=== PATIENT | female | born 1990 | race Asian ===

== ENCOUNTER → 2017-11-30 | Outpatient (REF) ==
[2017-12-02 14:39] LABS: QUANTIFERON GOLD TB Negative (Negative); TB Test (QFT) Antigen 0.05 IU/mL (.); TB Test (QFT) Antigen Minus Ni 0.02 IU/mL (.); TB Test (QFT) Mitogen 5.95 IU/mL (.); TB Test (QFT) Nil 0.03 IU/mL (.)
== END ==
LOC: M LAB 10:06
DX: Z02.89 Encounter for other administrative examinations (principal)

== ENCOUNTER → 2018-05-10 | Outpatient (REF) | payer BC ==
[2018-05-10 12:45] LABS: BASO % 0.7 % (0.0-1.0); EOS # 0.1 10^3/uL (0.0-0.50); EOS % 2.3 % (0.0-3.0); HEMATOCRIT 36.3 % (36.0-47.0); HEMOGLOBIN 12.2 g/dl (12.0-15.5); IMMATURE GRANULOCYTE % 0.2 % (0-3.0); LYMPH # 2.1 10^3/uL (1.5-4.5); LYMPH % 47.6 % (24.0-44.0); MEAN CORPUSCULAR HEMOGLOBIN 29.3 pg (27.0-33.0); MEAN CORPUSCULAR HGB CONC 33.6 g/dl (32.0-36.5); MEAN CORPUSCULAR VOLUME 87.3 fl (80.0-96.0); MONO # 0.3 10^3/uL (0.0-0.8); NEUTROPHILS # 1.9 10^3/uL (1.8-7.7); NEUTROPHILS % 43.2 % (36.0-66.0); PLATELET COUNT, AUTOMATED 301 10^3/uL (150-450); RED BLOOD COUNT 4.16 10^6/uL (4.00-5.40); RED CELL DISTRIBUTION WIDTH 12.2 % (11.5-14.5); RETICULOCYTE # 38.7 10^9/L (17-77); RETICULOCYTE % 0.9 % (0.5-1.5); WHITE BLOOD COUNT 4.3 10^3/uL (4.0-10.0)
[2018-05-10 12:57] LABS: ALBUMIN 3.8 GM/DL (3.2-5.2); ALBUMIN/GLOBULIN RATIO 1.15 (1.00-1.93); ALKALINE PHOSPHATASE 80 U/L (45-117); ALT/SGPT 41 U/L (12-78); ANION GAP 5 MEQ/L (8-16); AST/SGOT 26 U/L (7-37); BILIRUBIN,TOTAL 0.3 MG/DL (0.2-1.0); BLOOD UREA NITROGEN 10 MG/DL (7-18); CALCIUM LEVEL 8.8 MG/DL (8.5-10.1); CARBON DIOXIDE LEVEL 30 MEQ/L (21-32); CHLORIDE LEVEL 106 MEQ/L (98-107); CHOLESTEROL LEVEL 236 MG/DL (<200); CHOLESTEROL RISK RATIO 3.146 (<5); CREATININE FOR GFR 0.62 MG/DL (0.55-1.30); FERRITIN 12 NG/ML (8-252); FREE T4 0.82 NG/DL (0.76-1.46); GLOMERULAR FILTRATION RATE > 60.0 (>60); GLUCOSE, FASTING 79 MG/DL (70-100); HDL CHOLESTEROL 75 MG/DL (>40); LDL CHOLESTEROL 117 MG/DL (<100); NON-HDL-C 161 MG/DL; POTASSIUM SERUM 4.1 MEQ/L (3.5-5.1); SODIUM LEVEL 141 MEQ/L (136-145); TOTAL PROTEIN 7.1 GM/DL (6.4-8.2); TRIGLYCERIDES LEVEL 220 MG/DL (<150)
[2018-05-10 12:59] LABS: PTH INTACT 58.8 PG/ML (18.5-88.0)
[2018-05-10 14:03] LABS: ESTIMATED AVERAGE GLUCOSE 108 MG/DL (60-110); HEMOGLOBIN A1c 5.4 %
[2018-05-11 09:55] LABS: THYROGLOBULIN ANTIBODY 29.8 U/ML (<60.0); THYROID PEROXIDASE ANTIBODY < 28.0 U/ML (<60.0)
[2018-05-11 14:16] LABS: INSULIN LEVEL 15.5 uIU/mL (2.6-24.9)
== END ==
LOC: M SFHCPLAZ 09:31
DX: E03.9 Hypothyroidism, unspecified (principal); K86.89 Other specified diseases of pancreas
CPT/HCPCS: 83525

== ENCOUNTER → 2018-06-09 | Outpatient (REF) | payer BC ==
[2018-06-09 15:50] LABS: URINE PREG TEST NEGATIVE (NEGATIVE)
== END ==
LOC: M SFHCPLAZ 14:21
PROVIDERS: ATTEND Dermatology
DX: L70.0 Acne vulgaris (principal)

== ENCOUNTER → 2018-06-17 | Outpatient (CLI) | payer BC ==
[~2018-06-17] MED LIST: GASTROGRAFIN SOLUTION 30ML (Q9963) As Ordered ONE; ISOVUE-370 76% 100ML VIAL (Q9967) As Ordered ONE
--- NOTE | 2018-06-17 21:19 | REP ---
CT study of the chest with IV contrast: History: Lung nodule. History of malignant cystic pancreatic tumor. Right ovarian cyst. CT contrast dose: 100 ml of intravenous Isovue, three, [address] imaging was from November 15, 2017 at an outside facility. This was reported as showing a 5 mm partially solid nodule in the right middle lobe. CT findings: There has been no change in the appearance of the small partly solid nodular opacity in the right middle lobe in the interval since the November 15, 2017 prior study. It is unchanged in size and appears less solid. No progressive change is seen. No new pulmonary nodule is appreciated. No pleural or pericardial effusion is seen. No hilar or mediastinal mass or adenopathy is observed. There is a small quantity of residual thymic tissue again noted unchanged in the anterior mediastinum. No vascular abnormality is noted on this noncontrast study. No bony abnormality is seen. Impression: Non solid 5 mm right middle lobe nodular density unchanged when compared to the November 15, 2017 prior study. No new pulmonary parenchymal abnormalities. Consider repeat follow-up chest CT study in 1 year. Otherwise no acute disease. Electronically Signed by Vincent Zelaya MD 06/18/2018 08:23 A
--- NOTE | 2018-06-18 06:34 | REP ---
CT abdomen and pelvis without and with IV contrast: With oral contrast. History: History of cystic pancreatic malignancy, status post Whipple. Ovarian cyst. Comparison MRI study of the abdomen and pelvis from an outside institution dated November 15, 2017. CT contrast dose: 100 ml of intravenous Isovue 370. CT findings: Digital preliminary family practice doctor radiograph shows a few loops of dilated small bowel in the central abdomen. The liver is normal in size and homogeneous in texture. Spleen is unremarkable. No adrenal lesion is seen on either side. The kidneys enhance symmetrically and are morphologically intact. The patient is status post Whipple procedure. The pancreas is surgically absent. There is minimal pneumobilia in the common bile duct just above the choledochojejunostomy. No biliary ductal dilation is observed. The frank splenic venous confluence is slightly prominent but widely patent. The main portal vein measures 16 mm, which is mildly enlarged. No retroperitoneal or upper abdominal lymphadenopathy is seen. There are multiple air and fluid filled mildly dilated small bowel loops in the upper abdomen. No obstructive lesion is seen however. I suspect that the patient has had a gastroduodenal resection reanastomosis as there is no observable C-loop. No colonic abnormality is observed. In the pelvis, there is a right ovarian cystic lesion measuring 4.6 by 3.3 by 3.9 cm. This is nonspecific. Uterus is tipped to the left. Normal left ovary is seen. Urinary bladder is intact. No abdominal wall defect is seen. No bony destructive lesion is appreciated. Impression: Mildly dilated small bowel loops without obstructive lesion. Status post Whipple surgical findings. There is no evidence of adenopathy or metastatic disease. 4.6 cm cystic lesion right ovary. Electronically Signed by Vincent Zelaya MD 06/18/2018 08:24 A
== END ==
LOC: M RAD 16:08
PROVIDERS: ATTEND Family Medicine
DX: R91.1 Solitary pulmonary nodule (principal); D49.0 Neoplasm of unspecified behavior of digestive system; N83.201 Unspecified ovarian cyst, right side
CPT/HCPCS: 71260; 74178; Q9963; Q9967

== ENCOUNTER → 2018-07-11 | Outpatient (REF) | payer BC ==
[2018-07-11 19:15] LABS: URINE PREG TEST NEGATIVE (NEGATIVE)
[2018-07-11 19:43] LABS: HEMATOCRIT 37.1 % (36.0-47.0); HEMOGLOBIN 12.4 g/dl (12.0-15.5); MEAN CORPUSCULAR HEMOGLOBIN 29.7 pg (27.0-33.0); MEAN CORPUSCULAR HGB CONC 33.4 g/dl (32.0-36.5); MEAN CORPUSCULAR VOLUME 88.8 fl (80.0-96.0); PLATELET COUNT, AUTOMATED 313 10^3/uL (150-450); RED BLOOD COUNT 4.18 10^6/uL (4.00-5.40); WHITE BLOOD COUNT 5.2 10^3/uL (4.0-10.0)
[2018-07-11 19:48] LABS: ALBUMIN 4.1 GM/DL (3.2-5.2); ALT/SGPT 43 U/L (12-78); BILIRUBIN,TOTAL 0.4 MG/DL (0.2-1.0); BLOOD UREA NITROGEN 9 MG/DL (7-18); CALCIUM LEVEL 8.6 MG/DL (8.5-10.1); CARBON DIOXIDE LEVEL 28 MEQ/L (21-32); CHLORIDE LEVEL 104 MEQ/L (98-107); CHOLESTEROL LEVEL 195 MG/DL (<200); CHOLESTEROL RISK RATIO 2.349 (<5); CREATININE FOR GFR 0.67 MG/DL (0.55-1.30); GLOMERULAR FILTRATION RATE > 60.0 (>60); GLUCOSE, FASTING 86 MG/DL (70-100); HDL CHOLESTEROL 83 MG/DL (>40); LDL CHOLESTEROL 81 MG/DL (<100); NON-HDL-C 112 MG/DL; POTASSIUM SERUM 4.4 MEQ/L (3.5-5.1); SODIUM LEVEL 139 MEQ/L (136-145); TOTAL PROTEIN 7.1 GM/DL (6.4-8.2); TRIGLYCERIDES LEVEL 153 MG/DL (<150)
== END ==
LOC: M SFHCPLAZ 15:38
PROVIDERS: ATTEND Dermatology
DX: L70.0 Acne vulgaris (principal)

== ENCOUNTER → 2018-07-29 | Outpatient (REF) | payer BC ==
[2018-07-29 12:40] LABS: ALBUMIN 4.3 GM/DL (3.2-5.2); ALT/SGPT 38 U/L (12-78); BILIRUBIN,TOTAL 0.8 MG/DL (0.2-1.0); BLOOD UREA NITROGEN 7 MG/DL (7-18); CALCIUM LEVEL 8.7 MG/DL (8.5-10.1); CARBON DIOXIDE LEVEL 24 MEQ/L (21-32); CHLORIDE LEVEL 108 MEQ/L (98-107); CREATININE FOR GFR 0.86 MG/DL (0.55-1.30); GLOMERULAR FILTRATION RATE > 60.0 (>60); GLUCOSE, FASTING 71 MG/DL (70-100); SODIUM LEVEL 140 MEQ/L (136-145); TOTAL PROTEIN 7.5 GM/DL (6.4-8.2)
[2018-07-29 13:04] LABS: HEMOGLOBIN A1c 5.2 %
[2018-07-30 14:09] LABS: INSULIN LEVEL 7.1 uIU/mL (2.6-24.9)
[2018-08-01 14:11] LABS: D001-IgE D pteronyssinus <0.10 kU/L (Class 0); E001-IgE Cat Epith/Dander < 0.10 kU/L (Class 0); E005-IgE Dog Dander < 0.10 kU/L (Class 0); G002-IgE Bermuda Grass < 0.10 kU/L (Class 0); G008-IgE Kentucky Bluegrass < 0.10 kU/L (Class 0); M001-IgE Penicillium chrysogen < 0.10 kU/L (Class 0); M002 IgE Cladosporium herbaru < 0.10 kU/L (Class 0); M003 IgE Aspergillus fumigatu < 0.10 kU/L (Class 0); M006-IgE Alternaria alternata < 0.10 kU/L (Class 0); T001-IgE Maple/Box Elder < 0.10 kU/L (Class 0); T003-IgE Common Silver Birch < 0.10 kU/L (Class 0); T006-IgE Cedar, Mountain < 0.10 kU/L (Class 0); T007-IgE Oak, White < 0.10 kU/L (Class 0); T008-IgE Elm, American < 0.10 kU/L (Class 0); T015-IgE Ash, White < 0.10 kU/L (Class 0); T041-IgE Hickory, White < 0.10 kU/L (Class 0); T070-IgE White Mulberry < 0.10 kU/L (Class 0); W001-IgE Ragweed, Short < 0.10 kU/L (Class 0); W009-IgE Plantain, English < 0.10 kU/L (Class 0); W014-IgE Pigweed, Rough < 0.10 kU/L (Class 0); W018-IgE Sheep Sorrel < 0.10 kU/L (Class 0)
== END ==
LOC: M SFHCPLAZ 08:44
PROVIDERS: ATTEND Family Medicine
DX: K86.89 Other specified diseases of pancreas (principal); J30.89 Other allergic rhinitis

== ENCOUNTER → 2018-08-01 | Outpatient (REF) | payer BC ==
[2018-08-01 16:32] LABS: URINE PREG TEST NEGATIVE (NEGATIVE)
== END ==
LOC: M SFHCPLAZ 14:30
PROVIDERS: ATTEND Dermatology
DX: L70.0 Acne vulgaris (principal)

== ENCOUNTER → 2018-10-13 | Outpatient (REF) | payer BC ==
[2018-10-13 12:01] LABS: INR 0.98; PARTIAL THROMBOPLASTIN TIME 29.7 SECONDS (25.4-37.6); PROTHROMBIN TIME 13.1 SECONDS (12.1-14.4)
[2018-10-13 12:16] LABS: ALBUMIN 4.2 GM/DL (3.2-5.2); ALT/SGPT 334 U/L (12-78); BILIRUBIN,TOTAL 0.7 MG/DL (0.2-1.0); BLOOD UREA NITROGEN 11 MG/DL (7-18); CALCIUM LEVEL 8.8 MG/DL (8.5-10.1); CARBON DIOXIDE LEVEL 30 MEQ/L (21-32); CHLORIDE LEVEL 103 MEQ/L (98-107); CREATININE FOR GFR 0.72 MG/DL (0.55-1.30); FREE T4 1.04 NG/DL (0.76-1.46); GLOMERULAR FILTRATION RATE > 60.0 (>60); GLUCOSE, FASTING 82 MG/DL (70-100); POTASSIUM SERUM 4.2 MEQ/L (3.5-5.1); PTH INTACT 93.7 PG/ML (18.5-88.0); SODIUM LEVEL 139 MEQ/L (136-145); TOTAL 25(OH) VITAMIN D 10.5 NG/ML (30.0-100.0); TOTAL PROTEIN 7.4 GM/DL (6.4-8.2)
== END ==
LOC: M SFHCPLAZ 08:38
PROVIDERS: ATTEND Family Medicine
DX: E55.9 Vitamin D deficiency, unspecified (principal); E03.9 Hypothyroidism, unspecified; K86.89 Other specified diseases of pancreas

== ENCOUNTER → 2018-10-18 | Outpatient (CLI) | payer BC ==
[2018-10-18 17:28] LABS: ALBUMIN 3.6 GM/DL (3.2-5.2); ALT/SGPT 126 U/L (12-78); BILIRUBIN,DIRECT < 0.1 MG/DL (0.0-0.2); BILIRUBIN,TOTAL 0.3 MG/DL (0.2-1.0); TOTAL PROTEIN 7.1 GM/DL (6.4-8.2)
[2018-10-19 10:47] LABS: HEPATITIS B SURFACE ANTIGEN NEGATIVE (NEGATIVE)
[2018-10-19 11:17] LABS: HEPATITIS A ANTIBODY IGM NEGATIVE (NEGATIVE)
[2018-10-21 00:06] LABS: ANA (HEP2) Negative (.)
== END ==
LOC: M LAB 16:00
PROVIDERS: ATTEND Family Medicine
DX: K75.9 Inflammatory liver disease, unspecified (principal)

== ENCOUNTER → 2018-11-03 | Outpatient (CLI) | payer BC ==
--- NOTE | 2018-11-03 11:42 | REP ---
ULTRASOUND ABDOMEN: Real-time sonographic evaluation of abdomen performed. Patient has had a prior cholecystectomy and Whipple procedure. There is no intrahepatic or extrahepatic biliary dilatation, common bile duct measuring 5 mm. Liver demonstrates no mass. The pancreatic bed is grossly unremarkable. Spleen is normal in size with no intrinsic abnormality measuring 9.8 x 9.9 x 3.8 cm. Kidneys are normal in size and echotexture, right kidney measuring 10.0 x 4.8 x 4.0 cm and left kidney 10.1 x 4.2 x 4.2 cm. There is no hydronephrosis, renal mass or nephrolithiasis identified. Abdominal aorta could not be visualized due to overlying bowel gas. No ascites is seen. IMPRESSION: Essentially negative abdominal ultrasound status post Whipple procedure and cholecystectomy. Electronically Signed by Carlos Riojas MD 11/03/2018 04:32 P
== END ==
LOC: M RAD 07:24
PROVIDERS: ATTEND Family Medicine
DX: D49.0 Neoplasm of unspecified behavior of digestive system (principal); Z90.79 Acquired absence of other genital organ(s)

== ENCOUNTER → 2018-11-11 | Outpatient (REF) | payer BC ==
[2018-11-11 18:22] LABS: ALBUMIN 3.7 GM/DL (3.2-5.2); ALT/SGPT 41 U/L (12-78); BILIRUBIN,DIRECT 0.1 MG/DL (0.0-0.2); BILIRUBIN,TOTAL 0.5 MG/DL (0.2-1.0); CHOLESTEROL LEVEL 201 MG/DL (<200); CHOLESTEROL RISK RATIO 2.955 (<5); HDL CHOLESTEROL 68 MG/DL (>40); LDL CHOLESTEROL 89 MG/DL (<100); NON-HDL-C 133 MG/DL; TOTAL PROTEIN 7.3 GM/DL (6.4-8.2); TRIGLYCERIDES LEVEL 219 MG/DL (<150)
[2018-11-11 18:30] LABS: HCG, SERUM QUALITATIVE NEGATIVE (NEGATIVE)
[2018-11-11 18:41] LABS: HEMATOCRIT 36.8 % (36.0-47.0); HEMOGLOBIN 12.6 g/dl (12.0-15.5); MEAN CORPUSCULAR HEMOGLOBIN 30.4 pg (27.0-33.0); MEAN CORPUSCULAR HGB CONC 34.2 g/dl (32.0-36.5); MEAN CORPUSCULAR VOLUME 88.7 fl (80.0-96.0); PLATELET COUNT, AUTOMATED 306 10^3/uL (150-450); RED BLOOD COUNT 4.15 10^6/uL (4.00-5.40); WHITE BLOOD COUNT 7.1 10^3/uL (4.0-10.0)
== END ==
LOC: M SFHCPLAZ 15:36
PROVIDERS: ATTEND Family Medicine
DX: Z79.899 Other long term (current) drug therapy (principal)

== ENCOUNTER → 2018-11-17 | Outpatient (CLI) | payer BC ==
[2018-11-17 18:07] LABS: FREE T4 0.88 NG/DL (0.76-1.46); THYROID STIMULATING HORMONE 2.67 uIU/ML (0.358-3.740)
[2018-11-17 18:11] LABS: FOLLICLE STIMULATING HORMONE 2.5 mIU/mL; LUTEINIZING HORMONE 2.6 mIU/mL; PROGESTERONE 16.65 NG/ML; PROLACTIN 9.9 NG/ML
[2018-11-19 10:24] LABS: TESTOSTERONE FREE (DIRECT) 1.2 pg/mL (0.0-4.2)
== END ==
LOC: M SMT 15:30
PROVIDERS: ATTEND Specialist
DX: E28.2 Polycystic ovarian syndrome (principal); N93.8 Other specified abnormal uterine and vaginal bleeding

== ENCOUNTER → 2018-12-29 | Outpatient (CLI) | payer BC ==
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
--- NOTE | 2018-12-29 20:39 | REPVR ---
EXAM: MR Head Without Contrast EXAM DATE/TIME: 12/29/2018 6:28 PM CLINICAL HISTORY: 28 years old, female; Pain; Headache; Migraine; Aura effect not specified; Other: Unknown; Additional info: Intractable migraine TECHNIQUE: Imaging protocol: MR of the head without contrast. COMPARISON: No relevant prior studies available. FINDINGS: Brain: Normal. No acute infarct. No hemorrhage. No significant white matter disease. No edema. Ventricles: Normal. No ventriculomegaly. Bones/joints: Unremarkable. Soft tissues: Normal. Sinuses: Minimal inflammatory changes in the ethmoid sinuses. Mastoid air cells: Normal as visualized. No mastoid effusion. Orbits: Unremarkable. IMPRESSION: No acute findings. Electronically signed by: Elan Wilson On 12/29/2018 20:39:27 PM
== END ==
LOC: M RAD 16:40
PROVIDERS: ATTEND Psychiatry & Neurology Neurology
DX: G43.719 Chronic migraine without aura, intractable, without status migrainosus (principal)

== ENCOUNTER → 2019-01-13 | Outpatient (REF) | payer BC | LOC: M SFHCPLAZ 10:54 | PROVIDERS: ATTEND Dermatology | DX: D49.2 Neoplasm of unspecified behavior of bone, soft tissue, and skin (principal) ==

== ENCOUNTER → 2019-02-20 | Outpatient (CLI) | payer BC ==
[2019-02-20 11:53] LABS: HEMATOCRIT 35.3 % (36.0-47.0); HEMOGLOBIN 12.1 g/dl (12.0-15.5); MEAN CORPUSCULAR HEMOGLOBIN 29.6 pg (27.0-33.0); MEAN CORPUSCULAR HGB CONC 34.3 g/dl (32.0-36.5); MEAN CORPUSCULAR VOLUME 86.3 fl (80.0-96.0); PLATELET COUNT, AUTOMATED 287 10^3/uL (150-450); RED BLOOD COUNT 4.09 10^6/uL (4.00-5.40); WHITE BLOOD COUNT 6.1 10^3/uL (4.0-10.0)
[2019-02-20 12:24] LABS: ALBUMIN 3.9 GM/DL (3.2-5.2); BILIRUBIN,DIRECT 0.1 MG/DL (0.0-0.2); BILIRUBIN,TOTAL 0.4 MG/DL (0.2-1.0); CHOLESTEROL RISK RATIO 2.258 (<5)
[2019-02-20 16:25] LABS: URINE PREG TEST NEGATIVE (NEGATIVE)
== END ==
LOC: M LAB 10:51
PROVIDERS: ATTEND Dermatology
DX: Z79.899 Other long term (current) drug therapy (principal)

== ENCOUNTER → 2019-05-19 | Outpatient (CLI) | payer BC ==
[~2019-05-19] MED LIST changes: +E-Z-GAS II EFFERVESCENT PACKET (SODIUM BICARB./CITRIC ACID/SIMETHICONE) As Ordered ONE; +E-Z-HD 98% w/w 340GM SUSP BTL As Ordered ONE; +E-Z-PAQUE 96% w/w SUSP 176GM BTL As Ordered ONE; -GASTROGRAFIN SOLUTION 30ML (Q9963) As Ordered ONE; -ISOVUE-370 76% 100ML VIAL (Q9967) As Ordered ONE
--- NOTE | 2019-05-19 17:16 | REP ---
Upper GI Air Contrast with SBFT The procedure was performed by KRANTHI Rosen, under the the direct supervision of Dr. Zelaya. The images were reviewed with Dr. Zelaya. The 911 operator film shows no organomegaly or pathological masses. The intestinal gas pattern appears normal. Surgical clips are noted in the upper abdomen. Liquid barium and gas producing crystals were given in the erect position as well as liquid barium in the prone position in order to perform a double contrast upper GI examination. The oral and pharyngeal stages of deglutition were unremarkable. Esophageal transport is efficient and there is no esophagitis, stricture, or mucosal ring noted. There is no hiatal hernia. Gastroesophageal reflux was visualized to the level of the thoracic inlet. The stomach little are normally outlined. The rugal folds are smooth and regular. There is no gastritis, neoplasm, or ulcer disease noted. There is a postsurgical deformity with mild narrowing and irregularity of the descending duodenum. There is no peptic ulcer disease, obstruction, or neoplasm noted. The visualized portion of the proximal small bowel appears normal in course and caliber. The barium column was followed through the small bowel to the level of the terminal ileum. Small bowel transit time was approximately 90 minutes. During fluoroscopy gentle palpation shows all loops are freely mobile and pliable. There are no fixed or angulated loops. The small bowel mucosal pattern is normal in course and caliber. There is no evidence to suggest a partial small-bowel obstruction. There is a mesenteric cecum with the terminal ileum in the right upper quadrant. Spot filming of the terminal ileum shows it to be unremarkable. Impression: 1. Gastroesophageal reflux to the thoracic inlet. 2. Post surgical deformity with mild narrowing of the descending duodenum. 3. 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 0.7 minutes of fluoroscopy time was utilized for this procedure. Some fluoroscopic images are performed with last image hold technology. These images require no additional radiation. Reviewed by KRANTHI Pennington 05/19/2019 03:55 P Electronically Signed by Vincent Zelaya MD 05/19/2019 05:08 P
== END ==
LOC: M RAD 07:55
PROVIDERS: ATTEND Physician Assistant Medical
DX: R10.9 Unspecified abdominal pain (principal)

== ENCOUNTER → 2019-12-22 | Outpatient (CLI) | payer BC ==
[~2019-12-22] MED LIST changes: -E-Z-GAS II EFFERVESCENT PACKET (SODIUM BICARB./CITRIC ACID/SIMETHICONE) As Ordered ONE; -E-Z-HD 98% w/w 340GM SUSP BTL As Ordered ONE; -E-Z-PAQUE 96% w/w SUSP 176GM BTL As Ordered ONE; +ISOVUE-370 76% 100ML VIAL As Ordered ONE
--- NOTE | 2019-12-22 10:34 | REP ---
CT CHEST WITH IV CONTRAST: TECHNIQUE: Axial contrast-enhanced images from the thoracic inlet to the upper abdomen using 100 mL Isovue-370 intravenous contrast material with multiplanar reformations. COMPARISON: 06/17/2018 and 11/15/2017. Once again, in the right middle lobe, there is a nonsolid 5 mm nodular opacity. This has remained stable. No new nodule is seen in either lung. There is no infiltrate. There is no mediastinal, hilar, or chest wall lymphadenopathy. There is no pleural or pericardial effusion. The heart is normal in size. The thoracic aorta is normal in caliber with no abnormality. The visualized upper abdominal structure are unremarkable. Reportedly there has been prior Whipple procedure. The visualized osseous structures are unremarkable. IMPRESSION: Stable nonsolid 5 mm nodular density right middle lobe. This has remained stable for 2 years and can be considered benign. No followup needed. Electronically Signed by Carlos Riojas MD 12/25/2019 09:18 A
== END ==
LOC: M RAD 09:10
PROVIDERS: ATTEND Family Medicine
DX: R91.1 Solitary pulmonary nodule (principal)
CPT/HCPCS: 71260; Q9967

== ENCOUNTER → 2020-03-06 | Outpatient (REF) | payer BC ==
[2020-03-06 17:59] LABS: ALBUMIN 4.3 GM/DL (3.2-5.2); ALT/SGPT 42 U/L (12-78); BILIRUBIN,TOTAL 0.4 MG/DL (0.2-1.0); BLOOD UREA NITROGEN 7 MG/DL (7-18); CALCIUM LEVEL 9.2 MG/DL (8.5-10.1); CARBON DIOXIDE LEVEL 27 MEQ/L (21-32); CHLORIDE LEVEL 109 MEQ/L (98-107); CHOLESTEROL LEVEL 209 MG/DL (<200); CHOLESTEROL RISK RATIO 3.073 (<5); CREATININE FOR GFR 0.71 MG/DL (0.55-1.30); FREE T4 0.99 NG/DL (0.76-1.46); GLOMERULAR FILTRATION RATE > 60.0 (>60); GLUCOSE, FASTING 82 MG/DL (70-100); HDL CHOLESTEROL 68 MG/DL (>40); LDL CHOLESTEROL 101 MG/DL (<100); NON-HDL-C 141 MG/DL; SODIUM LEVEL 142 MEQ/L (136-145); TOTAL PROTEIN 7.8 GM/DL (6.4-8.2); TRIGLYCERIDES LEVEL 199 MG/DL (<150)
[2020-03-06 18:01] LABS: PTH INTACT 77.4 PG/ML (18.5-88.0); TOTAL 25(OH) VITAMIN D 11.1 NG/ML (30.0-100.0)
== END ==
LOC: M SFHCPLAZ 15:35
PROVIDERS: ATTEND Family Medicine
DX: K21.9 Gastro-esophageal reflux disease without esophagitis (principal); E03.9 Hypothyroidism, unspecified; E78.2 Mixed hyperlipidemia; E88.81 Metabolic syndrome and other insulin resistance; D49.0 Neoplasm of unspecified behavior of digestive system; E55.9 Vitamin D deficiency, unspecified

== ENCOUNTER → 2020-04-11 | Outpatient (CLI) | payer BC ==
[~2020-04-11] MED LIST changes: +GASTROGRAFIN SOLUTION 30ML (Q9963) As Ordered ONE
--- NOTE | 2020-04-11 18:55 | REP ---
INDICATION: ABDOMINAL PAIN. The patient has a history of pancreatic carcinoma and status post Whipple procedure. COMPARISON: Comparison CT study abdomen and pelvis June 17, 2018.. TECHNIQUE: Contrast dose: 100 ML of Isovue [address] technique: Helical scanning is acquired and overlapping 1.5 mm and contiguous 3 mm axial images are reformatted. In addition, maximum intensity projection and multiplanar re-formation images are generated in sagittal and coronal imaging projections. Oral contrast was also administered. FINDINGS: Preliminary digital paint roller covers supervisor radiograph is noncontributory. Lung bases are clear. The liver and the spleen remain normal in size homogeneous in texture. Postoperative changes in the upper abdomen include pancreatectomy, cholecystectomy, and coli cysto jejunostomy. Patient is status post Whipple procedure. 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 I note that the left renal vein is constricted between the aorta and the overlying superior mesenteric artery. Proximal to this, the left renal vein is a little dilated and there is reflux of contrast opacified blood from the renal vein extending caudally in the gonadal vein and left-sided inferior vena cava. These findings are unchanged. Borderline caliber but otherwise normal-appearing jejunal and ileal small bowel loops are seen. No obstructive lesion is seen. Colon is not dilated contains stool proximally and distally. The appendix is not directly visualized. The uterus is tipped to the left but anteverted and unremarkable. No ovarian lesion is seen. No free fluid is seen. No abdominal wall defect is observed. No bony destructive lesion is seen. IMPRESSION: Borderline caliber nonobstructive jejunal and ileal small bowel loops are seen throughout the abdomen. No obstructive lesion. Status post Whipple. 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 <Electronically signed by Henry Zelaya > 04/11/20 [id number]
== END ==
LOC: M RAD 16:31
PROVIDERS: ATTEND Nurse Practitioner Family
DX: E10.9 Type 1 diabetes mellitus without complications (principal)

== ENCOUNTER → 2020-06-12 | Outpatient (REF) | payer BC | LOC: M SFHCWAGY 10:08 | PROVIDERS: ATTEND Specialist | DX: Z01.419 Encounter for gynecological examination (general) (routine) without abnormal findings (principal) ==

== ENCOUNTER → 2021-02-07 | Outpatient (CLI) | payer BC | LOC: M LAB 07:21 | PROVIDERS: ATTEND Specialist | DX: L70.9 Acne, unspecified (principal) ==

== ENCOUNTER → 2021-02-07 | Outpatient (CLI) | payer BC ==
[2021-02-07 08:37] LABS: HEMOGLOBIN A1c 5.1 %
[2021-02-07 08:43] LABS: ALBUMIN 3.6 GM/DL (3.2-5.2); ALT/SGPT 48 U/L (12-78); BILIRUBIN,TOTAL 0.4 MG/DL (0.2-1.0); BLOOD UREA NITROGEN 6 MG/DL (7-18); CALCIUM LEVEL 8.8 MG/DL (8.5-10.1); CARBON DIOXIDE LEVEL 31 MEQ/L (21-32); CHLORIDE LEVEL 105 MEQ/L (98-107); CREATININE FOR GFR 0.68 MG/DL (0.55-1.30); GLOMERULAR FILTRATION RATE > 60.0 (>60); GLUCOSE, FASTING 107 MG/DL (70-100); POTASSIUM SERUM 4.2 MEQ/L (3.5-5.1); SODIUM LEVEL 141 MEQ/L (136-145); TOTAL PROTEIN 6.8 GM/DL (6.4-8.2)
[2021-02-07 10:48] LABS: PTH INTACT 70.6 PG/ML (18.5-88.0); TOTAL 25(OH) VITAMIN D 28.3 NG/ML (30.0-100.0)
== END ==
LOC: M LAB 07:19
PROVIDERS: ATTEND Family Medicine
DX: R73.01 Impaired fasting glucose (principal)

== ENCOUNTER → 2021-04-29 | Outpatient (CLI) | payer BC | LOC: M LAB 14:32 | PROVIDERS: ATTEND Family Medicine | DX: Z11.1 Encounter for screening for respiratory tuberculosis (principal) ==